=== PATIENT | male | born 1990 | race African-American/Black ===

== ENCOUNTER 2022-03-10 14:15 | Emergency (ER) | payer SELFPAY ==
[~2022-03-10] VITALS: Ht 177.8 cm; Wt 84.4 kg
--- NOTE | 2022-03-10 14:50 | NUR ---
RECIEVED PT 32 YRS MALE CAME BY [facility] COOPATIVE SCREMIMIN MISTY HAND CAFF FOR AGGITATION UNABLE TO CHECKED BS NOW TX GIVEN ORDER
[2022-03-10] MEDS ORDERED: LORAZEPAM INJ 2 MG/ML VIAL IM ONE (15:00)
[2022-03-10] MEDS ORDERED: diphenhydrAMINE HCL 50 MG/ML VIAL IM ONE (15:00)
[2022-03-10] MEDS ORDERED: LORAZEPAM INJ 2 MG/ML VIAL ONE (15:03)
[2022-03-10] MEDS ORDERED: diphenhydrAMINE HCL 50 MG/ML VIAL ONE (15:03)
--- NOTE | 2022-03-10 15:31 | NUR ---
PT COOPATIVE ON AND OFF
--- NOTE | 2022-03-10 16:15 | NUR ---
PT COOPATIVE AND AGGETATED
[2022-03-10 16:46] LABS: BASOPHILS % (AUTO) 0.3 % (0.0-2.0); EOSINOPHILS % (AUTO) 0.1 % (0.0-6.0); HEMATOCRIT 32 % (39-51); HEMOGLOBIN 10.7 g/dL (13.5-17.5); LYMPHOCYTES # (AUTO) 0.6 K/uL (0.8-4.8); LYMPHOCYTES % (AUTO) 5.8 % (20.0-44.0); MEAN CORPUSCULAR HGB CONC 33 g/dl (31.0-36.0); MEAN CORPUSCULAR VOLUME 84 fL (80-96); MONOCYTES # (AUTO) 0.8 K/uL (0.1-1.30); MONOCYTES % (AUTO) 7.6 % (2.0-12.0); NEUTROPHILS % (AUTO) 86.2 % (43.0-81.0); PLATELET COUNT (AUTO) 391 K/uL (150-450); RED BLOOD CELL COUNT(AUTO) 3.87 MIL/uL (4.5-6.0); WHITE BLOOD COUNT (AUTO) 10.4 K/uL (4.3-11.0)
[2022-03-10 16:56] LABS: CALCIUM, SERUM 8.9 mg/dL (8.5-10.1); CARBON DIOXIDE 27 mmol/L (21-32); CHLORIDE 106 mmol/L (98-107); CREATININE 1.6 mg/dL (0.6-1.3); GLUCOSE 79 mg/dL (74-106); POTASSIUM 4.3 mmol/L (3.5-5.1); SODIUM SERUM 141 mmol/L (136-145); UREA NITROGEN, BLOOD 30 mg/dL (7-18)
[2022-03-10 17:02] LABS: ALANINE AMINOTRANSFERASE 82 U/L (12-78); ALBUMIN 3.7 g/dL (3.4-5.0); ALKALINE PHOSPHATASE 103 U/L (46-116); ASPARTATE AMINOTRANSFERASE 103 U/L (15-37); BILIRUBIN,DIRECT 0.2 mg/dL (0.0-0.2); BILIRUBIN,TOTAL 0.7 mg/dL (0.2-1.0); TOTAL PROTEIN, SERUM 7.3 g/dL (6.4-8.2)
[2022-03-10 17:05] LABS: ACETAMINOPHEN < 0 ug/ml (10-30); ALCOHOL, BLOOD < 3 mg/dL (0-0)
--- NOTE | 2022-03-10 17:48 | NUR ---
PT ASLEEPY NO DISTRESS
--- NOTE | 2022-03-10 18:00 | NUR ---
PT ASLEPY COMPATIVE WHEN TRY TO GOT UP
--- NOTE | 2022-03-10 19:35 | NUR ---
HAND OFF TO NAZARIO OTTO
--- NOTE | 2022-03-10 20:45 | NUR ---
DAY SHIFT UNABLE TO COLLECTED URINE DURING SHIFT
--- NOTE | 2022-03-10 20:55 | NUR ---
URINE COLLECTED SENT TO LAB
[2022-03-10 22:12] LABS: BILIRUBIN,URINE NEGATIVE (NEGATIVE); COLOR,URINE YELLOW (YELLOW); LEUKOCYTE ESTERASE ,URINE NEGATIVE (NEGATIVE); NITRITE, URINE NEGATIVE (NEGATIVE); PROTEIN,URINE NEGATIVE (NEGATIVE); UGLUCOSE NEGATIVE (NEGATIVE); UROBILINOGEN,URINE 0.2 EU/dL (0.2)
[2022-03-10 23:01] VITALS: BP 135/80
--- NOTE | 2022-03-10 23:01 | NUR ---
Patient discharged to home in stable condition. Written and verbal after care instructions given. Patient verbalizes understanding of instruction.
== END 2022-03-10 23:01 | disposition home or self-care (01) ==
LOC: ER 14:18 → EDBD 14:18 → ER 23:01
DX: F15.10 Other stimulant abuse, uncomplicated (principal)
CPT/HCPCS: 36415; 80048; 80076; 80143; 80307; 80320; 81003; 82962 ×2; 85025; 96372 ×2; 99285; A6403 ×2; J1200; J2060; G0480